=== PATIENT | female | born 1950 | race Caucasian/White ===

== ENCOUNTER → 2017-03-20 | Outpatient (CLI) | payer MEDICARE, OTHER ==
[~2017-03-20] MED LIST: AMBIEN10 MG PO; ASPIRIN81 M1 PO; ATENOLOL50 MG PO; ATIVAN1 MG PO; CIPROFLOXACIN500 MG PO; CLARITIN10 MG PO; CORTISPORIN 1%-10 M1 OT; FOSAMAX70 MG PO; HYDROCODONE BIT1 T11 PO; LISINOPRIL5 MG PO; NITROSTAT0.4 MG SL; PLAVIX75 MG PO; PRINIVIL5 MG PO; PROZAC40 MG PO; TENORMIN50 MG PO; VICODIN 5/500 505 MG PO; VITAMIN D310000 UNIT PO; ZOCOR10 MG PO
[2017-03-20 10:43] LABS: HEMOGLOBIN A1c 5.5 % (4.8-5.6)
[2017-03-20 10:54] LABS: ALBUMIN 3.8 gm/dl (3.1-4.5); ALKALINE PHOSPHATASE 102 U/L (45-117); BILIRUBIN, DIRECT 0.1 mg/dL (0.0-0.2); BILIRUBIN, TOTAL 0.9 mg/dl (0.2-1.0); BUN 17 mg/dl (7-24); CARBON DIOXIDE 30 mmol/L (21-32); CHLORIDE 106 mmol/L (98-107); CHOLESTEROL 171 mg/dL (<200); EST GLOM FILT AFRICAN AMERICAN > 60 ml/min; GLUCOSE 96 mg/dL (65-99); HDL CHOLESTEROL 51 mg/dl (40-60); LDL CHOLESTEROL 62 mg/dL (9-159); SGOT/AST 16 IU/L (3-35); SGPT/ALT 18 U/L (12-78); SODIUM 142 mmol/L (136-145); TOTAL PROTEIN 7.3 gm/dL (6.4-8.2); TRIGLYCERIDES 290 mg/dl (<150); VLDL CHOLESTEROL 58 mg/dL (6-40)
== END | disposition home or self-care (01) ==
LOC: LAB 10:05
PROVIDERS: Internal Medicine
DX: I10 Essential (primary) hypertension (principal); E78.4 Other hyperlipidemia; R73.03 Prediabetes; E55.9 Vitamin D deficiency, unspecified; R73.02 Impaired glucose tolerance (oral)

== ENCOUNTER → 2017-04-07 | Outpatient (CLI) | payer MEDICARE, OTHER ==
[2017-04-07 15:17] LABS: BILIRUBIN NEGATIVE (NEGATIVE); BLOOD 3+ (NEGATIVE); CLARITY SL CLOUDY (CLEAR); COLOR YELLOW (YELLOW); GLUCOSE NEGATIVE (NEGATIVE); KETONE NEGATIVE (NEGATIVE); LEUKO ESTERASE NEGATIVE (NEGATIVE); NITRITE NEGATIVE (NEGATIVE); PROTEIN NEGATIVE (NEGATIVE); SPECIFIC GRAVITY >= 1.030 (1.005-1.030); UROBILINOGEN 0.2 E.U./dl (0.2-1.0)
[2017-04-07 15:25] LABS: BACTERIA 3+; EPITHELIAL CELLS TNTC
== END | disposition home or self-care (01) ==
LOC: LAB 14:51
PROVIDERS: Internal Medicine
DX: R35.0 Frequency of micturition (principal); R82.99 Other abnormal findings in urine

== ENCOUNTER → 2017-08-31 | Outpatient (CLI) | payer MEDICARE, OTHER ==
[2017-08-31 14:19] LABS: ALBUMIN 3.6 gm/dl (3.1-4.5); BUN 15 mg/dl (7-24); CHLORIDE 104 mmol/L (98-107); CREATININE 0.98 mg/dL (0.55-1.02); HDL CHOLESTEROL 43 mg/dl (40-60); SGOT/AST 18 IU/L (3-35); SGPT/ALT 17 U/L (12-78); SODIUM 139 mmol/L (136-145)
[2017-08-31 14:21] LABS: ALKALINE PHOSPHATASE 109 U/L (45-117); BILIRUBIN, DIRECT 0.1 mg/dL (0.0-0.2); CHOLESTEROL 146 mg/dL (<200); LDL CHOLESTEROL 48 mg/dL (9-159); TOTAL PROTEIN 7.4 gm/dL (6.4-8.2); TRIGLYCERIDES 273 mg/dl (<150); VLDL CHOLESTEROL 55 mg/dL (6-40)
== END ==
LOC: LAB 02:50
PROVIDERS: Internal Medicine
DX: Z12.31 Encounter for screening mammogram for malignant neoplasm of breast (principal); I10 Essential (primary) hypertension; I25.10 Atherosclerotic heart disease of native coronary artery without angina pectoris; E78.4 Other hyperlipidemia; R73.02 Impaired glucose tolerance (oral); E55.9 Vitamin D deficiency, unspecified

== ENCOUNTER → 2018-02-06 | Outpatient (CLI) | payer MEDICARE, OTHER | END | disposition home or self-care (01) | LOC: MRI 09:35 | DX: M48.061 Spinal stenosis, lumbar region without neurogenic claudication (principal); M51.37 Other intervertebral disc degeneration, lumbosacral region ==

== ENCOUNTER → 2018-09-12 | Outpatient (CLI) | payer MEDICARE, OTHER ==
[~2018-09-12] MED LIST changes: +HYDR25T PO; +MELOXICAM15 MG PO; +NORCO 10-325 T1 EACH PO; +OSTEO BI-FLEX1 EACH PO; +PRILOSEC20 M1 PO; +PROZAC40 M1 PO; -PROZAC40 MG PO; +ST. JOHN'S WOR300 MG PO
== END | disposition home or self-care (01) ==
LOC: MAMMO 03:38
DX: Z12.31 Encounter for screening mammogram for malignant neoplasm of breast (principal)

== ENCOUNTER → 2018-10-12 | Day surgery (SDC) | payer MEDICARE, OTHER ==
[~2018-10-12] VITALS: Ht 162.5 cm; Wt 83.9 kg
--- NOTE | ~2018-10-12 | O ---
[place], [place] OPERATIVE NOTE NAME: MIKE NASH UNIT #: [id number] ROOM: DOCTOR: CONNIE BERMAN MD BIRTHDATE: [birth year] DOS: 10/12/2018 GASTROENDOSCOPIC REPORT INDICATIONS: This is a 68-year-old patient who presented with chief complaint of concern about colonic evaluation, colonic polyp 11 years ago. ALLERGIES: PENICILLIN AND LATEX. FAMILY HISTORY: Noncontributory. PAST MEDICAL HISTORY: CABG, cholecystectomy, and ____. PAST MEDICAL HISTORY: Hyperlipidemia, hypertension, degenerative joint disease. SOCIAL HISTORY: Nonsmoker, nonalcohol consumer. PROCEDURE: Today's procedure part of investigation is colonoscopy. PREMEDICATION: Propofol. SCOPE: Olympus forward-viewing colonoscope 10L video. REPORT: After putting the patient in left lateral position and application of lubricant to the scope, the scope was introduced. Thereafter, under direct visualization, advanced through the length of colon without difficulty. Moderate diverticulosis of sigmoid colon was noticed. Base of the cecum explored, appendiceal orifice identified, ileocecal valve was defined. Air was suctioned out. The patient was extubated, tolerated the procedure well. IMPRESSION: Moderate diverticulosis, sigmoid colon. PLAN: High fiber fruit diet. ACTIVITY: Ad elissa. FOLLOWUP: Routinely with you in office, p.r.n. visit with us in [facility]. [place], [place] OPERATIVE NOTE [facility]: [id number] UNIT #: [id number] ROOM: DOCTOR: CONNIE BERMAN MD BIRTHDATE: [birth year] CONNIE BERMAN MD CM:OPRECORD:OPERATIVE NOTE 1200 1256 VIJAYA BERMAN MD 10/12/18 1255 interface
[2018-10-12 10:00] VITALS: BP 126/51
[2018-10-12 11:52] VITALS: BP 116/93
[2018-10-12 12:05] VITALS: BP 127/65
[2018-10-12 12:22] VITALS: BP 132/68
== END | disposition home or self-care (01) ==
LOC: SDC 10-09 10:15
DX: Z12.11 Encounter for screening for malignant neoplasm of colon (principal); Z86.010 Personal history of colon polyps; K57.30 Diverticulosis of large intestine without perforation or abscess without bleeding; I10 Essential (primary) hypertension; I25.10 Atherosclerotic heart disease of native coronary artery without angina pectoris; E78.5 Hyperlipidemia, unspecified; F32.9 Major depressive disorder, single episode, unspecified; F41.9 Anxiety disorder, unspecified; M19.90 Unspecified osteoarthritis, unspecified site; E66.09 Other obesity due to excess calories; Z88.0 Allergy status to penicillin; Z91.040 Latex allergy status; Z95.1 Presence of aortocoronary bypass graft; Z90.49 Acquired absence of other specified parts of digestive tract; Z98.890 Other specified postprocedural states; Z79.899 Other long term (current) drug therapy; Z87.891 Personal history of nicotine dependence; Z68.31 Body mass index [BMI] 31.0-31.9, adult
CPT/HCPCS: 00812; G0105

== ENCOUNTER → 2019-06-19 | Outpatient (CLI) | payer MEDICARE, OTHER ==
[2019-06-19 12:30] LABS: BASO # 0.1 10*3/uL (0.0-0.1); BASO % 1.2 % (0.0-1.0); EOS # 0.3 10*3/uL (0.0-0.4); EOS % 3.7 % (1.0-4.0); HEMATOCRIT 42.6 % (37.0-47.0); HEMOGLOBIN 13.9 g/dl (12.0-16.0); LYMPH # 1.9 10*3/uL (1.3-4.4); LYMPH % 23.9 % (27.0-41.0); MEAN CELL VOLUME 90.3 fl (81.0-99.0); MEAN CORPUSCULAR HGB 29.4 pg (27.0-31.0); MEAN CORPUSCULAR HGB CONC 32.6 g/dl (33.0-37.0); MEAN PLATELET VOLUME 10.1 fl (9.6-12.3); MONO # 0.7 10*3/uL (0.1-1.0); MONO % 8.3 % (3.0-9.0); NEUT % 62.5 % (47.0-73.0); PLATELET COUNT AUTOMATED 246 10*3/uL (130-400); RED BLOOD COUNT 4.72 10*6/uL (4.10-5.10); WHITE BLOOD COUNT 8.1 10*3/uL (4.8-10.8)
[2019-06-19 12:57] LABS: ALBUMIN 3.7 gm/dl (3.1-4.5); ALKALINE PHOSPHATASE 95 U/L (45-117); BUN 17 mg/dl (7-24); CHLORIDE 105 mmol/L (98-107); CREATININE 1.02 mg/dL (0.55-1.02); POTASSIUM 3.9 mmol/L (3.5-5.1); SGOT/AST 15 IU/L (3-35); SGPT/ALT 26 U/L (12-78); SODIUM 139 mmol/L (136-145)
[2019-06-19 12:57] LABS: BILIRUBIN NEGATIVE (NEGATIVE); BLOOD 1+ (NEGATIVE); CLARITY CLEAR (CLEAR); COLOR YELLOW (YELLOW); GLUCOSE NEGATIVE (NEGATIVE); KETONE NEGATIVE (NEGATIVE); LEUKO ESTERASE NEGATIVE (NEGATIVE); NITRITE NEGATIVE (NEGATIVE); UROBILINOGEN 0.2 E.U./dl (0.2-1.0)
[2019-06-19 13:16] LABS: WBC 0-2 wbc/hpf (0-5)
== END | disposition home or self-care (01) ==
LOC: LAB 11:42
PROVIDERS: Nurse Practitioner Family
DX: R31.9 Hematuria, unspecified (principal)

== ENCOUNTER → 2019-06-24 | Outpatient (CLI) | payer MEDICARE, OTHER | END | disposition home or self-care (01) | LOC: CT 01:02 | DX: K57.30 Diverticulosis of large intestine without perforation or abscess without bleeding (principal); K76.0 Fatty (change of) liver, not elsewhere classified; I25.10 Atherosclerotic heart disease of native coronary artery without angina pectoris; R31.0 Gross hematuria; R10.12 Left upper quadrant pain; N28.1 Cyst of kidney, acquired; Z90.49 Acquired absence of other specified parts of digestive tract ==

== ENCOUNTER → 2019-10-29 | Outpatient (CLI) | payer MEDICARE, OTHER ==
[2019-10-29 11:40] LABS: BASO # 0.1 10*3/uL (0.0-0.1); BASO % 0.9 % (0.0-1.0); EOS # 0.2 10*3/uL (0.0-0.4); EOS % 2.8 % (1.0-4.0); HEMATOCRIT 46.8 % (37.0-47.0); HEMOGLOBIN 15.7 g/dl (12.0-16.0); LYMPH % 23.4 % (27.0-41.0); MEAN CORPUSCULAR HGB 29.8 pg (27.0-31.0); MEAN CORPUSCULAR HGB CONC 33.5 g/dl (33.0-37.0); MEAN PLATELET VOLUME 10.8 fl (9.6-12.3); MONO # 0.6 10*3/uL (0.1-1.0); MONO % 6.6 % (3.0-9.0); NEUT # 5.7 10*3/uL (2.3-7.9); PLATELET COUNT AUTOMATED 282 10*3/uL (130-400); RED BLOOD COUNT 5.26 10*6/uL (4.10-5.10); WHITE BLOOD COUNT 8.6 10*3/uL (4.8-10.8)
[2019-10-29 11:49] LABS: BILIRUBIN NEGATIVE (NEGATIVE); BLOOD 1+ (NEGATIVE); CLARITY CLOUDY (CLEAR); COLOR YELLOW (YELLOW); GLUCOSE NEGATIVE (NEGATIVE); KETONE NEGATIVE (NEGATIVE); LEUKO ESTERASE NEGATIVE (NEGATIVE); NITRITE NEGATIVE (NEGATIVE); SPECIFIC GRAVITY 1.025 (1.005-1.030); UROBILINOGEN 0.2 E.U./dl (0.2-1.0)
[2019-10-29 12:10] LABS: ALBUMIN 3.9 gm/dl (3.1-4.5); CREATININE 1.19 mg/dL (0.55-1.02); THYROXINE (T4) TOTAL 9.7 ug/dl (4.8-13.9); TOTAL PROTEIN 7.4 gm/dL (6.4-8.2)
[2019-10-29 12:17] LABS: THYROID STIM HORMONE (HS) 0.691 uIU/ml (0.358-4.75)
[2019-10-29 12:30] LABS: FERRITIN 46.3 ng/mL (10.0-291.0); VITAMIN D, 25-HYDROXY 71.6 ng/mL (30-100)
[2019-10-29 13:35] LABS: BACTERIA 4+
[2019-10-29 13:36] LABS: RBC 21-30 rbc/hpf (0-2)
[2019-10-29 13:37] LABS: EPITHELIAL CELLS 20-30; MUCOUS 2+
== END | disposition home or self-care (01) ==
LOC: LAB 10:50
PROVIDERS: Family Medicine
DX: E78.5 Hyperlipidemia, unspecified (principal); R79.89 Other specified abnormal findings of blood chemistry; R53.83 Other fatigue; E55.9 Vitamin D deficiency, unspecified

== ENCOUNTER → 2020-07-24 | Outpatient (CLI) | payer MEDICARE, OTHER ==
[2020-07-24 13:06] LABS: BASO # 0.1 10*3/uL (0.0-0.1); BASO % 0.7 % (0.0-1.0); EOS # 0.2 10*3/uL (0.0-0.4); EOS % 2.5 % (1.0-4.0); LYMPH % 25.5 % (27.0-41.0); MEAN CELL VOLUME 86.9 fl (81.0-99.0); MEAN CORPUSCULAR HGB 28.1 pg (27.0-31.0); MEAN CORPUSCULAR HGB CONC 32.3 g/dl (33.0-37.0); MEAN PLATELET VOLUME 10.3 fl (9.6-12.3); MONO # 0.6 10*3/uL (0.1-1.0); MONO % 7.9 % (3.0-9.0); NEUT # 5.1 10*3/uL (2.3-7.9); PLATELET COUNT AUTOMATED 250 10*3/uL (130-400); RED BLOOD COUNT 4.95 10*6/uL (4.10-5.10); RED CELL DISTRI WIDTH 13.2 % (0-14.5); RETICULOCYTE % 1.41 % (0.50-2.50)
[2020-07-24 13:21] LABS: COLOR Yellow (YELLOW)
[2020-07-24 13:22] LABS: BILIRUBIN Negative; BLOOD 3+ (NEGATIVE); CLARITY Cloudy (CLEAR); GLUCOSE Negative; KETONE Negative; LEUKO ESTERASE 1+ (NEGATIVE); NITRITE Negative (NEGATIVE); PH 5.5 (4.5-8.0); RBC TNTC rbc/hpf (0-2)
[2020-07-24 13:37] LABS: ALBUMIN 3.4 gm/dl (3.1-4.5); BUN 15 mg/dl (7-24); CHLORIDE 107 mmol/L (98-107); CHOLESTEROL 145 mg/dL (<200); GAMMA GLUTAMYL TRANSPEPTIDASE 14 U/L (5-55); SODIUM 141 mmol/L (136-145); TRIGLYCERIDES 198 mg/dl (<150); VLDL CHOLESTEROL 40 mg/dL (6-40)
[2020-07-24 13:47] LABS: ALKALINE PHOSPHATASE 101 U/L (45-117); CPK 88 U/L (26-192); CREATININE 1.02 mg/dL (0.55-1.02); HDL CHOLESTEROL 44 mg/dl (40-60); IRON 43 ug/dL (50-170); LDL CHOLESTEROL 61 mg/dL (9-159); SGOT/AST 16 IU/L (3-35); SGPT/ALT 20 U/L (12-78); THYROID STIM HORMONE (HS) 0.772 uIU/ml (0.358-4.75); TOTAL IRON BINDING CAPACITY 346 ug/dl (250-450); TOTAL PROTEIN 6.7 gm/dL (6.4-8.2)
[2020-07-24 13:57] LABS: FERRITIN 30.3 ng/mL (10.0-291.0); VITAMIN D, 25-HYDROXY 80.6 ng/mL (30-100)
== END | disposition home or self-care (01) ==
LOC: LAB 12:40
PROVIDERS: ATTEND Family Medicine
DX: E55.9 Vitamin D deficiency, unspecified (principal); R53.83 Other fatigue; R79.89 Other specified abnormal findings of blood chemistry; K76.0 Fatty (change of) liver, not elsewhere classified

== ENCOUNTER → 2021-03-19 | Outpatient (CLI) | payer MEDICARE, OTHER ==
[2021-03-19 11:49] LABS: BILIRUBIN Negative (Negative); BLOOD Negative (Negative); CLARITY Clear (Clear); COLOR Yellow (Yellow); GLUCOSE Negative (Negative); KETONE Negative (Negative); LEUKO ESTERASE 1+ (Negative); NITRITE Negative (Negative); SPECIFIC GRAVITY <= 1.005 (1.001-1.030); UROBILINOGEN 0.2 E.U./dl (0.0-1.0)
[2021-03-19 11:58] LABS: BASO # 0.1 10*3/uL (0.0-0.1); BASO % 1.3 % (0.0-1.0); EOS # 0.2 10*3/uL (0.0-0.4); EOS % 2.8 % (1.0-4.0); HEMATOCRIT 41.6 % (37.0-47.0); LYMPH % 29.1 % (27.0-41.0); MEAN CELL VOLUME 86.8 fl (81.0-99.0); MEAN CORPUSCULAR HGB 28.8 pg (27.0-31.0); MEAN CORPUSCULAR HGB CONC 33.2 g/dl (33.0-37.0); MEAN PLATELET VOLUME 10.2 fl (9.6-12.3); MONO # 0.6 10*3/uL (0.1-1.0); MONO % 8.1 % (3.0-9.0); NEUT % 58.4 % (47.0-73.0); PLATELET COUNT AUTOMATED 231 10*3/uL (130-400); RED BLOOD COUNT 4.79 10*6/uL (4.10-5.10); RED CELL DISTRI WIDTH 13.3 % (0-14.5); RETICULOCYTE % 1.62 % (0.50-2.50); WHITE BLOOD COUNT 6.8 10*3/uL (4.8-10.8)
[2021-03-19 12:05] LABS: ALBUMIN 3.3 gm/dl (3.1-4.5); CREATININE 1.24 mg/dL (0.55-1.02); POTASSIUM 3.8 mmol/L (3.5-5.1)
[2021-03-19 12:12] LABS: THYROID STIM HORMONE (HS) 0.813 uIU/ml (0.358-4.75)
[2021-03-19 12:31] LABS: BACTERIA 1+
[2021-03-19 12:36] LABS: FERRITIN 26.7 ng/mL (10.0-291.0); VITAMIN D, 25-HYDROXY 81.8 ng/mL (30-100)
== END | disposition home or self-care (01) ==
LOC: LAB 11:26
PROVIDERS: ATTEND Family Medicine
DX: E78.5 Hyperlipidemia, unspecified (principal); R79.89 Other specified abnormal findings of blood chemistry; R53.83 Other fatigue; R74.8 Abnormal levels of other serum enzymes; E55.9 Vitamin D deficiency, unspecified

== ENCOUNTER → 2021-07-22 | Day surgery (SDC) | payer MEDICARE, OTHER ==
[~2021-07-22] VITALS: Ht 162.5 cm; Wt 91.2 kg
[2021-07-22 07:59] VITALS: BP 122/93
[2021-07-22 08:42] VITALS: BP 106/72
[2021-07-22 08:57] VITALS: BP 113/84
[2021-07-22 09:12] VITALS: BP 112/62
== END | disposition home or self-care (01) ==
LOC: SDC 07-19 09:30
PROVIDERS: ATTEND Surgery
DX: Z12.11 Encounter for screening for malignant neoplasm of colon (principal); K57.30 Diverticulosis of large intestine without perforation or abscess without bleeding; K21.9 Gastro-esophageal reflux disease without esophagitis; F41.9 Anxiety disorder, unspecified; J45.909 Unspecified asthma, uncomplicated; F32.9 Major depressive disorder, single episode, unspecified; I25.10 Atherosclerotic heart disease of native coronary artery without angina pectoris; Z90.710 Acquired absence of both cervix and uterus; Z95.1 Presence of aortocoronary bypass graft; Z88.1 Allergy status to other antibiotic agents; Z98.890 Other specified postprocedural states; Z79.899 Other long term (current) drug therapy; Z20.822 Contact with and (suspected) exposure to COVID-19
CPT/HCPCS: 00812; G0121

== ENCOUNTER → 2022-03-07 | Outpatient (CLI) | payer MEDICARE, OTHER ==
[2022-03-07 10:03] LABS: BASO # 0.1 10*3/uL (0.0-0.1); BASO % 0.9 % (0.0-1.0); BILIRUBIN Negative (Negative); BLOOD Trace-Intact (Negative); CLARITY Clear (Clear); COLOR Yellow (Yellow); EOS # 0.1 10*3/uL (0.0-0.4); GLUCOSE Negative (Negative); HEMATOCRIT 42.3 % (37.0-47.0); KETONE Negative (Negative); LEUKO ESTERASE 3+ (Negative); LYMPH # 1.7 10*3/uL (1.3-4.4); LYMPH % 24.4 % (27.0-41.0); MEAN CELL VOLUME 86.5 fl (81.0-99.0); MEAN CORPUSCULAR HGB 28.8 pg (27.0-31.0); MEAN CORPUSCULAR HGB CONC 33.3 g/dl (33.0-37.0); MEAN PLATELET VOLUME 10.1 fl (9.6-12.3); MONO # 0.6 10*3/uL (0.1-1.0); MONO % 8.2 % (3.0-9.0); NEUT # 4.5 10*3/uL (2.3-7.9); NEUT % 64.2 % (47.0-73.0); NITRITE Negative (Negative); PH 6.5 (4.5-8.0); PLATELET COUNT AUTOMATED 246 10*3/uL (130-400); RED BLOOD COUNT 4.89 10*6/uL (4.10-5.10); RED CELL DISTRI WIDTH 13.3 % (0-14.5); RETICULOCYTE % 1.69 % (0.50-2.50); UROBILINOGEN 0.2 E.U./dl (0.0-1.0); WHITE BLOOD COUNT 7.1 10*3/uL (4.8-10.8)
[2022-03-07 10:11] LABS: WBC 16-20 wbc/hpf (0-5)
[2022-03-07 10:12] LABS: BACTERIA 1+
[2022-03-07 10:38] LABS: CREATININE 1.1 mg/dL (0.55-1.02); POTASSIUM 3.9 mmol/L (3.5-5.1); THYROXINE (T4) TOTAL 8.6 ug/dl (4.8-13.9); TOTAL PROTEIN 6.8 gm/dL (6.4-8.2)
[2022-03-07 10:47] LABS: THYROID STIM HORMONE (HS) 0.505 uIU/ml (0.358-4.75)
[2022-03-07 11:52] LABS: FERRITIN 23.6 ng/mL (10.0-291.0)
== END | disposition home or self-care (01) ==
LOC: LAB 09:37
PROVIDERS: ATTEND Family Medicine
DX: R79.89 Other specified abnormal findings of blood chemistry (principal); R53.83 Other fatigue; E78.5 Hyperlipidemia, unspecified; E55.9 Vitamin D deficiency, unspecified; R74.8 Abnormal levels of other serum enzymes

== ENCOUNTER → 2022-10-17 | Outpatient (CLI) | payer MEDICARE, OTHER ==
[2022-10-17 15:09] LABS: BASO # 0.1 10*3/uL (0.0-0.1); BASO % 0.8 % (0.0-1.0); EOS # 0.2 10*3/uL (0.0-0.4); EOS % 2.4 % (1.0-4.0); HEMATOCRIT 42.1 % (37.0-47.0); LYMPH # 2.1 10*3/uL (1.3-4.4); LYMPH % 23.8 % (27.0-41.0); MEAN CELL VOLUME 86.3 fl (81.0-99.0); MEAN CORPUSCULAR HGB 29.3 pg (27.0-31.0); MEAN PLATELET VOLUME 9.9 fl (9.6-12.3); MONO # 0.8 10*3/uL (0.1-1.0); MONO % 9.4 % (3.0-9.0); NEUT # 5.5 10*3/uL (2.3-7.9); NEUT % 63.5 % (47.0-73.0); PLATELET COUNT AUTOMATED 243 10*3/uL (130-400); RED BLOOD COUNT 4.88 10*6/uL (4.10-5.10); RED CELL DISTRI WIDTH 13.6 % (0-14.5); RETICULOCYTE % 1.68 % (0.50-2.50); WHITE BLOOD COUNT 8.6 10*3/uL (4.8-10.8)
[2022-10-17 15:11] LABS: BILIRUBIN Negative (Negative); BLOOD Negative (Negative); CLARITY Clear (Clear); COLOR Yellow (Yellow); GLUCOSE Negative (Negative); KETONE Negative (Negative); LEUKO ESTERASE 2+ (Negative); NITRITE Negative (Negative); PH 5.5 (4.5-8.0); UROBILINOGEN 0.2 E.U./dl (0.0-1.0)
[2022-10-17 15:25] LABS: RBC 0-2 rbc/hpf (0-2)
[2022-10-17 15:29] LABS: CREATININE 1.18 mg/dL (0.55-1.02); POTASSIUM 3.8 mmol/L (3.4-5.1); THYROID STIM HORMONE (HS) 0.733 uIU/ml (0.550-4.780); TOTAL PROTEIN 6.8 gm/dL (6.0-8.0)
[2022-10-17 17:16] LABS: VITAMIN D, 25-HYDROXY 68.5 ng/mL (30-100)
== END | disposition home or self-care (01) ==
LOC: LAB 14:34
PROVIDERS: ATTEND Family Medicine
DX: E78.5 Hyperlipidemia, unspecified (principal); E55.9 Vitamin D deficiency, unspecified; R53.83 Other fatigue; R79.89 Other specified abnormal findings of blood chemistry; R74.8 Abnormal levels of other serum enzymes

== ENCOUNTER → 2023-03-29 | Outpatient (CLI) | payer MEDICARE, OTHER ==
[2023-03-29 10:06] LABS: BASO # 0.1 10*3/uL (0.0-0.1); BASO % 0.9 % (0.0-1.0); EOS # 0.2 10*3/uL (0.0-0.4); EOS % 3.1 % (1.0-4.0); HEMATOCRIT 43.8 % (37.0-47.0); LYMPH # 1.7 10*3/uL (1.3-4.4); LYMPH % 23.1 % (27.0-41.0); MEAN CELL VOLUME 89.2 fl (81.0-99.0); MEAN CORPUSCULAR HGB 29.1 pg (27.0-31.0); MEAN CORPUSCULAR HGB CONC 32.6 g/dl (33.0-37.0); MEAN PLATELET VOLUME 10.1 fl (9.6-12.3); MONO # 0.6 10*3/uL (0.1-1.0); MONO % 8.1 % (3.0-9.0); NEUT # 4.8 10*3/uL (2.3-7.9); NEUT % 64.5 % (47.0-73.0); PLATELET COUNT AUTOMATED 244 10*3/uL (130-400); RED BLOOD COUNT 4.91 10*6/uL (4.10-5.10); RED CELL DISTRI WIDTH 13.2 % (0-14.5); RETICULOCYTE % 1.37 % (0.50-2.50); WHITE BLOOD COUNT 7.4 10*3/uL (4.8-10.8)
[2023-03-29 10:08] LABS: BILIRUBIN Negative (Negative); BLOOD Negative (Negative); CLARITY Clear (Clear); COLOR Yellow (Yellow); GLUCOSE Negative (Negative); KETONE Negative (Negative); LEUKO ESTERASE 3+ (Negative); NITRITE Negative (Negative)
[2023-03-29 10:35] LABS: ALKALINE PHOSPHATASE 89 U/L (46-116); BUN 11 mg/dl (9-23); CHLORIDE 106 mmol/L (98-107); CHOLESTEROL 113 mg/dL (<200); GAMMA GLUTAMYL TRANSPEPTIDASE 13 U/L (0-73); LDL CHOLESTEROL 41 mg/dL (9-159); POTASSIUM 3.8 mmol/L (3.4-5.1); SGPT/ALT 14 U/L (10-49); THYROID STIM HORMONE (HS) 0.623 uIU/ml (0.550-4.780); TRIGLYCERIDES 133 mg/dl (<150)
[2023-03-29 10:41] LABS: VITAMIN D, 25-HYDROXY 64.3 ng/mL (30-100)
[2023-03-29 10:58] LABS: RBC 0-2 rbc/hpf (0-2)
[2023-03-29 10:59] LABS: BACTERIA 2+; EPITHELIAL CELLS TNTC; WBC TNTC wbc/hpf (0-5)
== END | disposition home or self-care (01) ==
LOC: LAB 09:40
PROVIDERS: ATTEND Family Medicine
DX: E78.5 Hyperlipidemia, unspecified (principal); E55.9 Vitamin D deficiency, unspecified; R79.89 Other specified abnormal findings of blood chemistry; R53.83 Other fatigue; R74.8 Abnormal levels of other serum enzymes

== ENCOUNTER → 2023-07-11 | Outpatient (CLI) | payer MEDICARE, OTHER ==
[2023-07-11 09:55] LABS: BASO # 0.1 10*3/uL (0.0-0.1); EOS # 0.2 10*3/uL (0.0-0.4); EOS % 3.1 % (1.0-4.0); HEMATOCRIT 42.2 % (37.0-47.0); LYMPH % 28.5 % (27.0-41.0); MEAN CELL VOLUME 88.8 fl (81.0-99.0); MEAN CORPUSCULAR HGB 30.3 pg (27.0-31.0); MEAN CORPUSCULAR HGB CONC 34.1 g/dl (33.0-37.0); MEAN PLATELET VOLUME 10.3 fl (9.6-12.3); MONO # 0.6 10*3/uL (0.1-1.0); MONO % 8.1 % (3.0-9.0); NEUT # 4.1 10*3/uL (2.3-7.9); NEUT % 59.2 % (47.0-73.0); PLATELET COUNT AUTOMATED 223 10*3/uL (130-400); RED BLOOD COUNT 4.75 10*6/uL (4.10-5.10); RED CELL DISTRI WIDTH 13.3 % (0-14.5)
[2023-07-11 09:56] LABS: BILIRUBIN Negative (Negative); BLOOD Trace-Lysed (Negative); CLARITY Clear (Clear); COLOR Yellow (Yellow); GLUCOSE Negative (Negative); KETONE Negative (Negative); LEUKO ESTERASE 2+ (Negative); NITRITE Negative (Negative); PH 5.5 (4.5-8.0); SPECIFIC GRAVITY 1.015 (1.001-1.030)
[2023-07-11 10:04] LABS: BACTERIA 1+; URINE CREATININE RANDOM 100.38 mg/dL; WBC 16-20 wbc/hpf (0-5)
[2023-07-11 10:05] LABS: RBC 0-2 rbc/hpf (0-2)
[2023-07-11 10:40] LABS: VITAMIN D, 25-HYDROXY 68.6 ng/mL (30-100)
== END | disposition home or self-care (01) ==
LOC: LAB 09:20
PROVIDERS: ATTEND Internal Medicine Nephrology
DX: N18.31 Chronic kidney disease, stage 3a (principal); D63.1 Anemia in chronic kidney disease; N25.81 Secondary hyperparathyroidism of renal origin; Z79.899 Other long term (current) drug therapy

== ENCOUNTER → 2023-08-04 | Outpatient (CLI) | payer MEDICARE, OTHER ==
[2023-08-04 08:53] LABS: BILIRUBIN Negative (Negative); BLOOD Trace-Intact (Negative); CLARITY Clear (Clear); COLOR Yellow (Yellow); GLUCOSE Negative (Negative); KETONE Negative (Negative); LEUKO ESTERASE 3+ (Negative); NITRITE Negative (Negative); PH 5.5 (4.5-8.0); UROBILINOGEN 0.2 E.U./dl (0.0-1.0)
[2023-08-04 08:57] LABS: BASO # 0.1 10*3/uL (0.0-0.1); BASO % 1.2 % (0.0-1.0); EOS # 0.3 10*3/uL (0.0-0.4); HEMATOCRIT 41.8 % (37.0-47.0); LYMPH # 1.6 10*3/uL (1.3-4.4); LYMPH % 24.9 % (27.0-41.0); MEAN CELL VOLUME 89.9 fl (81.0-99.0); MEAN CORPUSCULAR HGB 29.5 pg (27.0-31.0); MEAN CORPUSCULAR HGB CONC 32.8 g/dl (33.0-37.0); MEAN PLATELET VOLUME 10.2 fl (9.6-12.3); MONO # 0.6 10*3/uL (0.1-1.0); MONO % 9.2 % (3.0-9.0); NEUT % 60.4 % (47.0-73.0); PLATELET COUNT AUTOMATED 229 10*3/uL (130-400); RED BLOOD COUNT 4.65 10*6/uL (4.10-5.10); RED CELL DISTRI WIDTH 13.2 % (0-14.5); RETICULOCYTE % 1.44 % (0.50-2.50); WHITE BLOOD COUNT 6.6 10*3/uL (4.8-10.8)
[2023-08-04 09:29] LABS: ALKALINE PHOSPHATASE 103 U/L (46-116); BUN 14 mg/dl (9-23); CHLORIDE 107 mmol/L (98-107); CHOLESTEROL 107 mg/dL (<200); GAMMA GLUTAMYL TRANSPEPTIDASE 17 U/L (0-73); LDL CHOLESTEROL 46 mg/dL (9-159); POTASSIUM 4.3 mmol/L (3.4-5.1); SGPT/ALT 9 U/L (10-49); T3 UPTAKE 22.5 % (22.4-36.7); THYROXINE (T4) TOTAL 7.1 ug/dl (4.5-10.9); TOTAL PROTEIN 6.4 gm/dL (6.0-8.0); TRIGLYCERIDES 85 mg/dl (<150); VITAMIN D, 25-HYDROXY 75.2 ng/mL (30-100)
[2023-08-04 11:05] LABS: BACTERIA 1+; WBC 16-20 wbc/hpf (0-5)
== END | disposition home or self-care (01) ==
LOC: LAB 08:19
PROVIDERS: ATTEND Family Medicine
DX: R79.89 Other specified abnormal findings of blood chemistry (principal); R53.83 Other fatigue; E78.5 Hyperlipidemia, unspecified; E55.9 Vitamin D deficiency, unspecified

== ENCOUNTER → 2024-01-09 | Outpatient (CLI) | payer MEDICARE, OTHER ==
[2024-01-09 10:44] LABS: BASO # 0.1 10*3/uL (0.0-0.1); BASO % 0.9 % (0.0-1.0); EOS # 0.3 10*3/uL (0.0-0.4); EOS % 3.3 % (1.0-4.0); LYMPH % 24.5 % (27.0-41.0); MEAN CELL VOLUME 89.6 fl (81.0-99.0); MEAN CORPUSCULAR HGB 29.5 pg (27.0-31.0); MEAN CORPUSCULAR HGB CONC 32.9 g/dl (33.0-37.0); MEAN PLATELET VOLUME 10.1 fl (9.6-12.3); MONO # 0.6 10*3/uL (0.1-1.0); MONO % 7.5 % (3.0-9.0); NEUT # 5.2 10*3/uL (2.3-7.9); NEUT % 63.6 % (47.0-73.0); PLATELET COUNT AUTOMATED 248 10*3/uL (130-400); RED BLOOD COUNT 5.02 10*6/uL (4.10-5.10); RED CELL DISTRI WIDTH 13.2 % (0-14.5); RETICULOCYTE % 1.74 % (0.50-2.50); WHITE BLOOD COUNT 8.1 10*3/uL (4.8-10.8)
[2024-01-09 10:56] LABS: BILIRUBIN Negative (Negative); BLOOD Trace-Lysed (Negative); CLARITY Cloudy (Clear); COLOR Yellow (Yellow); GLUCOSE Negative (Negative); KETONE Negative (Negative); LEUKO ESTERASE 3+ (Negative); NITRITE Negative (Negative); PH 5.5 (4.5-8.0); UROBILINOGEN 0.2 E.U./dl (0.0-1.0)
[2024-01-09 11:03] LABS: URINE CREATININE RANDOM 190.41 mg/dL
[2024-01-09 11:28] LABS: BACTERIA TRACE; MUCOUS TRACE; WBC 21-30 wbc/hpf (0-5)
[2024-01-09 11:53] LABS: BUN 12 mg/dl (9-23); CHLORIDE 105 mmol/L (98-107)
[2024-01-09 11:57] LABS: ALKALINE PHOSPHATASE 100 U/L (46-116); BUN 11 mg/dl (9-23); CHLORIDE 106 mmol/L (98-107); CHOLESTEROL 119 mg/dL (<200); GAMMA GLUTAMYL TRANSPEPTIDASE 15 U/L (0-73); LDL CHOLESTEROL 44 mg/dL (9-159); SGPT/ALT 13 U/L (5-49); THYROXINE (T4) TOTAL 7.3 ug/dl (4.5-10.9); TRIGLYCERIDES 148 mg/dl (<150); VITAMIN D, 25-HYDROXY 73.6 ng/mL (30-100)
== END | disposition home or self-care (01) ==
LOC: LAB 10:21
PROVIDERS: Family Medicine; ATTEND Internal Medicine Nephrology
DX: N25.81 Secondary hyperparathyroidism of renal origin (principal); N18.30 Chronic kidney disease, stage 3 unspecified; D63.1 Anemia in chronic kidney disease; R79.89 Other specified abnormal findings of blood chemistry; R53.83 Other fatigue; E78.5 Hyperlipidemia, unspecified; E55.9 Vitamin D deficiency, unspecified

== ENCOUNTER → 2024-07-11 | Outpatient (CLI) | payer MEDICARE, OTHER ==
[2024-07-11 10:03] LABS: BASO # 0.1 10*3/uL (0.0-0.1); BASO % 1.2 % (0.0-1.0); EOS # 0.3 10*3/uL (0.0-0.4); EOS % 2.9 % (1.0-4.0); HEMATOCRIT 43.8 % (37.0-47.0); LYMPH # 1.9 10*3/uL (1.3-4.4); LYMPH % 22.5 % (27.0-41.0); MEAN CELL VOLUME 90.1 fl (81.0-99.0); MEAN CORPUSCULAR HGB 29.8 pg (27.0-31.0); MEAN CORPUSCULAR HGB CONC 33.1 g/dl (33.0-37.0); MEAN PLATELET VOLUME 10.1 fl (9.6-12.3); MONO # 0.7 10*3/uL (0.1-1.0); MONO % 7.6 % (3.0-9.0); NEUT # 5.6 10*3/uL (2.3-7.9); NEUT % 65.4 % (47.0-73.0); PLATELET COUNT AUTOMATED 240 10*3/uL (130-400); RED BLOOD COUNT 4.86 10*6/uL (4.10-5.10); RED CELL DISTRI WIDTH 13.2 % (0-14.5); RETICULOCYTE % 1.85 % (0.50-2.50); WHITE BLOOD COUNT 8.6 10*3/uL (4.8-10.8)
[2024-07-11 10:04] LABS: BILIRUBIN Negative (Negative); BLOOD Negative (Negative); CLARITY Clear (Clear); COLOR Yellow (Yellow); GLUCOSE Negative (Negative); KETONE Trace (Negative); LEUKO ESTERASE 2+ (Negative); NITRITE Negative (Negative)
[2024-07-11 10:12] LABS: URINE CREATININE RANDOM 173.25 mg/dL
[2024-07-11 10:21] LABS: BACTERIA 3+; CALCIUM OXALATE CRYSTALS 1+; MUCOUS 1+; WBC 21-30 wbc/hpf (0-5)
[2024-07-11 10:35] LABS: POTASSIUM 4.1 mmol/L (3.4-5.1)
[2024-07-11 10:38] LABS: POTASSIUM 4.1 mmol/L (3.4-5.1); T3 UPTAKE 28.6 % (22.4-36.7); THYROXINE (T4) TOTAL 7.3 ug/dl (4.5-10.9); TOTAL PROTEIN 7.1 gm/dL (6.0-8.0)
[2024-07-11 10:41] LABS: VITAMIN D, 25-HYDROXY 90.2 ng/mL (30-100)
== END | disposition home or self-care (01) ==
LOC: LAB 09:32
PROVIDERS: Family Medicine; ATTEND Internal Medicine Nephrology
DX: N18.30 Chronic kidney disease, stage 3 unspecified (principal); N25.81 Secondary hyperparathyroidism of renal origin; R79.89 Other specified abnormal findings of blood chemistry; R53.83 Other fatigue; E78.5 Hyperlipidemia, unspecified; E55.9 Vitamin D deficiency, unspecified; D63.1 Anemia in chronic kidney disease

== ENCOUNTER → 2024-12-02 | Outpatient (CLI) | payer OTHER | END | disposition home or self-care (01) | LOC: RAD 11:43 | PROVIDERS: ATTEND Family Medicine | DX: M17.0 Bilateral primary osteoarthritis of knee (principal); M43.16 Spondylolisthesis, lumbar region; M54.50 Low back pain, unspecified; M51.369 Other intervertebral disc degeneration, lumbar region without mention of lumbar back pain or lower extremity pain; M85.88 Other specified disorders of bone density and structure, other site; I70.0 Atherosclerosis of aorta; Z90.49 Acquired absence of other specified parts of digestive tract ==

== ENCOUNTER → 2025-07-08 | Outpatient (CLI) | payer MEDICARE, OTHER ==
[2025-07-08 10:06] LABS: BASO # 0.1 10*3/uL (0.0-0.1); BASO % 0.9 % (0.0-1.0); EOS # 0.2 10*3/uL (0.0-0.4); EOS % 3.0 % (1.0-4.0); MEAN CELL VOLUME 89.8 fl (81.0-99.0); MEAN CORPUSCULAR HGB 29.8 pg (27.0-31.0); MEAN PLATELET VOLUME 10.2 fl (9.6-12.3); MONO # 0.6 10*3/uL (0.1-1.0); MONO % 8.5 % (3.0-9.0); NEUT # 4.3 10*3/uL (2.3-7.9); NEUT % 62.2 % (47.0-73.0); NUCLEATED RED BLOOD CELL 0.0 % (0.0-0.0); NUCLEATED RED BLOOD CELL 0.0 10*3/uL (0.0-0.0); PLATELET COUNT AUTOMATED 220 10*3/uL (130-400); RED CELL DISTRI WIDTH 13.0 % (0-14.5)
[2025-07-08 10:07] LABS: RETICULOCYTE % 1.67 % (0.50-2.50)
[2025-07-08 10:12] LABS: BILIRUBIN Negative (Negative); BLOOD Trace-Lysed (Negative); CLARITY Cloudy (Clear); COLOR Yellow (Yellow); KETONE Trace (Negative); LEUKO ESTERASE 2+ (Negative); NITRITE Negative (Negative); PH 5.5 (4.5-8.0); SPECIFIC GRAVITY 1.020 (1.001-1.030); UROBILINOGEN 1.0 E.U./dl (0.0-1.0)
[2025-07-08 10:31] LABS: BACTERIA 3+; EPITHELIAL CELLS 31-40; MUCOUS 1+; WBC 16-20 wbc/hpf (0-5)
[2025-07-08 10:48] LABS: BUN 15.0 mg/dl (9-23)
[2025-07-08 10:50] LABS: BUN 15 mg/dl (9-23); GAMMA GLUTAMYL TRANSFERASE 15 U/L (0-38); LDL CHOLESTEROL 39 mg/dL (9-159); SGPT/ALT 17 U/L (5-49); T3 UPTAKE 26.5 % (22.4-36.7); THYROXINE (T4) TOTAL 8.3 ug/dl (4.5-10.9)
[2025-07-08 10:52] LABS: VITAMIN D, 25-HYDROXY 78.8 ng/mL (30-100); VITAMIN D, 25-HYDROXY 79.9 ng/mL (30-100)
== END | disposition home or self-care (01) ==
LOC: LAB 09:26
PROVIDERS: Family Medicine; ATTEND Internal Medicine Nephrology
DX: E78.5 Hyperlipidemia, unspecified (principal); E55.9 Vitamin D deficiency, unspecified; R79.89 Other specified abnormal findings of blood chemistry; R53.83 Other fatigue